=== PATIENT | female | born 2000 | race Caucasian/White ===

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

== ENCOUNTER 2018-05-16 09:47 | Emergency (ER) | payer MEDICAID, OTHER ==
--- NOTE | 2018-05-16 10:25 | ED Physician Documentation ---
PD HPI OPHTHO - Stated complaint Stated Complaint: SWOLLEN EYE - History obtained from History obtained from: Patient, Family - History of Present Illness Timing - onset: How many days ago (2) Timing - duration: Days (2) Timing - details: Gradual onset Pain level max: 0 Pain level now: 0 Location: Both Quality / character: Itching Associated symptoms: Swelling, Tearing (clear). No: Redness, Matting, FB sensation, Photophobia Contributing factors: Other (rhinorrhea, congestion) Recently seen: Not recently seen Review of Systems Constitutional: denies: Fever, Chills Ears: denies: Ear pain Nose: reports: Rhinorrhea / runny nose, Congestion Throat: denies: Sore throat Respiratory: reports: Cough (mild, dry) GI: denies: Vomiting : denies: Now EGA PD PAST MEDICAL HISTORY - Past Medical History Past Medical History: Yes Cardiovascular: None Respiratory: None GI: GERD HEENT: None Psych: Depression, Anxiety Musculoskeletal: Chronic back pain - Past Surgical History Past Surgical History: No - Present Medications Home Medications: Ambulatory Orders Medication Instructions Recorded Confirmed Ketotifen Fumarate [Zaditor] 1 drops EACHEYE Q8H PRN #1 bottle 05/16/18 Polymyxin B/Trimeth Ophth Drop 1 drops EACHEYE Q3H 7 Days #1 05/16/18 [Polytrim Ophth Drops] bottle - Allergies Allergies/Adverse Reactions: Allergies Allergy/AdvReac Type Severity Reaction Status Date / Time No Known Drug Allergies Allergy Verified 03/25/16 19:00 - Social History Does the pt smoke?: No Smoking Status: Never smoker - Immunizations Immunizations are current?: Yes - POLST Patient has POLST: No PD ED PE NORMAL - Vitals Vital signs reviewed: Yes - General General: Alert and oriented X 3 - HEENT HEENT: Moist mucous membranes, Other (Eyes - Mild conjunctival injection bilaterally. Clear drainage. No purulence. Mild swelling to the upper and lower eyelids, mainly on the right eye. No erythema. No stye.) - Neck Neck: Supple, no meningeal sign - Derm Derm: Warm and dry - Neuro Neuro: Alert and oriented X 3 Results - Vitals Vitals: Vital Signs - 24 hr 05/16/18 10:30 Temperature 36.4 C L Heart Rate 66 Respiratory 15 Rate Blood Pressure 113/69 O2 Saturation 100 Oxygen O2 Source Room air PD MEDICAL DECISION MAKING - ED course Complexity details: considered differential, d/w patient ED course: Patient is a 17-year-old female with what appears to be blepharitis versus viral conjunctivitis of her eyes. Does have viral URI symptoms. Will place on Zaditor eyedrops and follow-up with her doctor. She is well-appearing, nontoxic. Afebrile. She does work in the fast foods worker industry, therefore will cover with ophthalmic antibiotics as well. Patient counseled regarding signs and symptoms for which I believe and urgent re-evaluation would be necessary. Patient with good understanding of and agreement to plan and is comfortable going home at this time This document was made in part using voice recognition software. While efforts are made to proofread this document, sound alike and grammatical errors may occur. - Sepsis Event Vital Signs: Vital Signs - 24 hr 05/16/18 10:30 Temperature 36.4 C L Heart Rate 66 Respiratory 15 Rate Blood Pressure 113/69 O2 Saturation 100 Oxygen O2 Source Room air Departure - Departure Disposition: 01 Home, Self Care Clinical Impression: Conjunctivitis Qualifiers: Conjunctivitis type: blepharoconjunctivitis Blepharoconjunctivitis type: unspecified Laterality: right Qualified Code(s): H10.501 - Unspecified blepharoconjunctivitis, right eye Condition: Good Instructions: ED Conjunctivitis Nonspecific Follow-Up: your,doctor in 1 week if not better [Other] Prescriptions: Ketotifen Fumarate [Zaditor] 1 drops EACHEYE Q8H PRN #1 bottle PRN Reason: itching Polymyxin B/Trimeth Ophth Drop [Polytrim Ophth Drops] 1 drops EACHEYE Q3H 7 Days #1 bottle Comments: Return if you worsen. This should improve over the next few days. Use the drops at least 10 minutes apart. Forms: Activity restrictions Discharge Date/Time: 05/16/18 10:36
[2018-05-16 10:34] VITALS: BP 113/69
== END 2018-05-16 10:36 | disposition home or self-care (01) ==
LOC: ED 09:47
DX: H10.501 Unspecified blepharoconjunctivitis, right eye (principal); K21.9 Gastro-esophageal reflux disease without esophagitis
CPT/HCPCS: 99283

== ENCOUNTER 2019-07-03 11:49 | Emergency (ER) | payer OTHER ==
[2019-07-03 12:09] VITALS: BP 147/98
--- NOTE | 2019-07-03 12:41 | ED Physician Documentation ---
PD HPI LOWER EXT INJURY - Stated complaint Stated Complaint: RT ANKLE PX/INJ - Chief complaint Chief Complaint: Ext Problem - History obtained from History obtained from: Patient - History of Present Illness PD HPI LOW EXT INJURY LOCATION: Right, Ankle Type of injury: Fall Timing - onset: How many hours ago (1) Timing - duration: Hours (1) Timing - details: Abrupt onset Pain level max: 7 Pain level now: 5 Improved by: Rest, Ice, Immobilization Worsened by: Moving, Palpating Associated symptoms: Swelling. No: Weakness, Numbness, Tingling Recently seen: Not recently seen - Additional information Additional information: 18-year-old female with right ankle pain status post a fall today. She states that she had a tendon repair on this ankle 11/08/2016. Concerned she may have injured the repair. She was able to bear weight after the event, but it is painful. Worse with walking, better with rest Review of Systems Constitutional: denies: Fever, Chills GI: denies: Nausea, Vomiting, Diarrhea : denies: Now EGA Skin: denies: Rash Musculoskeletal: denies: Neck pain, Back pain Neurologic: denies: Head injury PD PAST MEDICAL HISTORY - Past Medical History Past Medical History: No Cardiovascular: None Respiratory: None Neuro: None Endocrine/Autoimmune: None GI: GERD MEASUREMENT PSYCHOLOGIST: None : None HEENT: None Psych: Depression, Anxiety Musculoskeletal: Chronic back pain Derm: None - Past Surgical History Past Surgical History: No - Present Medications Home Medications: Ambulatory Orders Medication Instructions Recorded Confirmed Ketotifen Fumarate [Zaditor] 1 drops EACHEYE Q8H PRN #1 bottle 05/16/18 Polymyxin B/Trimeth Ophth Drop 1 drops EACHEYE Q3H 7 Days #1 05/16/18 [Polytrim Ophth Drops] bottle - Allergies Allergies/Adverse Reactions: Allergies Allergy/AdvReac Type Severity Reaction Status Date / Time No Known Drug Allergies Allergy Verified 07/03/19 12:08 - Social History Does the pt smoke?: No Smoking Status: Never smoker Does the pt drink ETOH?: No Does the pt have substance abuse?: No - Immunizations Immunizations are current?: Yes - POLST Patient has POLST: No PD ED PE NORMAL - Vitals Vital signs reviewed: Yes - General General: Alert and oriented X 3, No acute distress - HEENT HEENT: Moist mucous membranes - Derm Derm: Warm and dry - Extremities Extremities: Other (Tender to palpation over the right lateral malleolus. Mild swelling. Neurovascular intact. No tenderness over the foot including the base of the fifth metatarsal. No tenderness over the proximal tibia or fibula. No deformity.) - Neuro Neuro: Alert and oriented X 3 Results - Vitals Vitals: Vital Signs - 24 hr 07/03/19 12:06 Temperature 36.4 C L Heart Rate 94 Respiratory 19 Rate Blood Pressure 147/98 H O2 Saturation 98 Oxygen O2 Source Room air - Rads (name of study) Right ankle x-ray Radiology: Prelim report reviewed, EMP read contemporaneously, See rad report (No acute abnormalities) PD MEDICAL DECISION MAKING - ED course Complexity details: reviewed results, re-evaluated patient, considered differential, d/w patient ED course: 18-year-old female with a right ankle sprain. Has her own crutches with her. Will place in an Aircast. Pt will follow-up with her doctor for further care. Patient counseled regarding signs and symptoms for which I believe and urgent re-evaluation would be necessary. Patient with good understanding of and agreement to plan and is comfortable going home at this time This document was made in part using voice recognition software. While efforts are made to proofread this document, sound alike and grammatical errors may occur. Departure - Departure Disposition: 01 Home, Self Care Clinical Impression: Right ankle sprain Qualifiers: Encounter type: initial encounter Involved ligament of ankle: unspecified ligament Qualified Code(s): S93.401A - Sprain of unspecified ligament of right ankle, initial encounter Condition: Good Instructions: ED Sprain Ankle Follow-Up: your,doctor in 1 week [Other] Comments: You may bear weight as tolerated. You can use Motrin or Tylenol as needed for pain. Return if you worsen. Follow-up with your doctor in 1 week for repeat evaluation. Your x-rays do not show any fractures today.
--- NOTE | 2019-07-03 12:50 | XRAY Report ---
Reason: trauma Procedure Date: 07/03/2019 Accession Number: [id number] / [id number] Procedure: XR - Ankle 3 View RT CPT Code: FULL RESULT: EXAM: RIGHT ANKLE RADIOGRAPHY EXAM DATE: 07/03/2019 12:36 PM. CLINICAL HISTORY: Injury, pain COMPARISON: ANKLE 3 VIEW RT 08/27/2016 2:08 PM. TECHNIQUE: 3 views. FINDINGS: Bones: Bony mineralization appears appropriate. No acute fracture or focal osseous destruction. Joints: Alignment and joint spaces appear maintained. Soft Tissues: No radiopaque foreign body. Mild soft tissue swelling. IMPRESSION: Mild soft tissue swelling. No acute fracture or dislocation. [facility]IA
== END 2019-07-03 13:28 | disposition home or self-care (01) ==
LOC: ED 11:49
DX: S93.401A Sprain of unspecified ligament of right ankle, initial encounter (principal); W01.0XXA Fall on same level from slipping, tripping and stumbling without subsequent striking against object, initial encounter; Y92.89 Other specified places as the place of occurrence of the external cause
CPT/HCPCS: 99281; 99282